=== PATIENT | female | born 1950 ===

== ENCOUNTER 2020-03-05 05:30 | Day surgery (SDC) | payer OTHER ==
[~2020-03-05 05:30] MED LIST: CRESTOR10 MG PO; FEROSUL325 MG PO; PROTONIX40 MG PO
== END 2020-03-05 12:45 | disposition home or self-care (01) ==
LOC: CIR.AMB 05:30 → ADM 09:15 → CIR.AMB 09:15
PROVIDERS: ATTEND Orthopaedic Surgery Hand Surgery
DX: D16.11 Benign neoplasm of short bones of right upper limb (principal)

== ENCOUNTER 2020-11-11 11:17 | Outpatient (CLI) | payer OTHER | END 2020-11-11 11:25 | disposition home or self-care (01) | LOC: SONOGRAMA 11:17 | PROVIDERS: ATTEND Pathology Anatomic Pathology & Clinical Pathology | DX: R22.2 Localized swelling, mass and lump, trunk (principal) ==

== ENCOUNTER 2021-06-04 14:30 | Outpatient (CLI) | payer OTHER | END 2021-06-04 15:00 | disposition home or self-care (01) | LOC: PPH VACUNA 14:30 | PROVIDERS: ATTEND Emergency Medicine Pediatric Emergency Medicine | DX: Z23 Encounter for immunization (principal) ==

== ENCOUNTER 2021-09-01 10:22 | Outpatient (CLI) | payer OTHER | END 2021-09-01 10:26 | disposition home or self-care (01) | LOC: SONOGRAMA 10:22 | PROVIDERS: ATTEND Pathology Anatomic Pathology & Clinical Pathology | DX: E04.1 Nontoxic single thyroid nodule (principal) ==

== ENCOUNTER 2022-05-18 13:42 | Outpatient (CLI) | payer OTHER | END 2022-05-18 13:52 | disposition home or self-care (01) | LOC: PPH VACUNA 13:42 | PROVIDERS: ATTEND Emergency Medicine Pediatric Emergency Medicine | DX: Z23 Encounter for immunization (principal) ==